=== PATIENT | male | born 1995 | race Caucasian/White ===

== ENCOUNTER 2016-09-26 11:24 | Day surgery (SDC) | payer OTHER ==
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
[~2016-09-26] VITALS: Ht 182.9 cm; Wt 90.0 kg
[~2016-09-26 11:24] MED LIST: CEFAZOLIN 2000 MG/60 ML D5W 60 ML IV SCH; LACTATED RINGER'S 1000ML 1,000 ML IV SCH; LACTATED RINGER'S 1000ML IV SCH
[2016-09-26 11:44] VITALS: BP 106/71; PULSE 54; TEMP 36.8; O2SAT 100; Ht 182.9 cm; Wt 90.0 kg
[2016-09-26] MEDS ORDERED: OXYC-57 PO ×2 (12:00→16:02)
--- NOTE | 2016-09-26 12:03 | History & Physical Bridge Note ---
H&P Re-Evaluation Bridge Note: I have examined the patient, reviewed the History & Physical and in the interval since the performance of the History & Physical I have noted the following changes of clinical significance: No changes noted
[2016-09-26 12:09] LABS: HEMATOCRIT 44.1 % (42-52); MEAN CELL VOLUME 88.7 fL (80-100); MEAN CORPUSCULAR HEMOGLOBIN 31.4 pg (25-34); MEAN PLATELET VOLUME 9.8 fL (7.4-10.4); PLATELET COUNT 216 K/uL (130-400); RED BLOOD COUNT 4.97 M/uL (4.7-6.1); WHITE BLOOD COUNT 4.74 K/uL (4.8-10.8)
[2016-09-26 12:12] LABS: MEAN CORPUSCULAR HGB CONC 35.4 g/dl (32-36)
[2016-09-26] MEDS ORDERED: BUPIVACAINE/EPINEPHRINE 0.5% MPF 1:200,000 30 ML VIAL ONE (12:52)
[2016-09-26] MEDS ORDERED: LIDOCAINE HCL 2% 2 ML VIAL (20MG/ML) ONE (12:53)
[2016-09-26] MEDS ORDERED: ONDANSETRON INJ 2 MG/ML 2 ML VIAL ONE (12:53)
[2016-09-26] MEDS ORDERED: DEXAMETHASONE SOD INJ 4 MG/ML VIAL ONE (12:53)
[2016-09-26] MEDS ORDERED: PROPOFOL IV EMULSION 10 MG/ML 20 ML VIAL IV ONE (12:53)
[2016-09-26] MEDS ORDERED: MIDAZOLAM HCL 1 MG/ML 2ML VIAL ONE (12:53)
[2016-09-26] MEDS ORDERED: FENTANYL CITRATE INJ 50 MCG/1 ML 2 ML VIAL ONE ×2 (12:53)
[2016-09-26] MEDS ORDERED: NEOSTIGMINE METHYLSULFATE 5 MG/5 ML SYR ONE (15:14)
[2016-09-26] MEDS ORDERED: GLYCOPYRROLATE INJ 0.2 MG/ML VIAL ONE (15:14)
--- NOTE | 2016-09-26 15:30 | DIAGNOSTIC IMAGING REPORT ---
INTRAOPERATIVE RIGHT CLAVICLE SINGLE VIEW CLINICAL HISTORY: Right clavicular fracture status post internal fixation COMPARISON: None. DISCUSSION: 14 seconds of fluoroscopic time was utilized. A single fluoroscopic spot images provided for interpretation. This demonstrates an internally fixated right clavicular fracture. There is a superior metallic plate with multiple screws. The medial aspect of the clavicle is not included on this single projection. IMPRESSION: Internally fixated right clavicular fracture. Electronically signed by: Toño Marcano M.D. 09/26/2016 3:28 PM Dictated Date/Time: 09/26/2016 3:28 PM
[2016-09-26] MEDS ORDERED: SODIUM CHLORIDE 0.9% 1000ML 1,000 ML IV SCH (16:05)
--- NOTE | 2016-09-26 16:05 | Discharge Instructions ---
Discharge Instructions Date of Service Sep 26, 2016. Admission Reason for Admission: Closed Fracture Of Clavicle Shaft Discharge Discharge Diagnosis / Problem: SAME ABOVE Discharge Goals Goal(s): Decrease discomfort, Improve function Activity Recommendations Activity Limitations: as noted below Lifting Limitations: until after follow-up appointment Exercise/Sports Limitations: until after follow-up appointment Driving or Machine Use: UNTIL AFTER FOLLOW-UP . Instructions / Follow-Up Instructions / Follow-Up MEDICATIONS: * Resume previous medications unless instructed otherwise by your surgeon. * Always take pain medication on a full stomach or with food to avoid upset stomach. * Do not drink alcohol or drive while taking narcotics. * Ibuprofen or Tylenol may be taken if narcotic not needed. SPECIAL CARE INSTRUCTIONS: __ None _X_ Keep extremity elevated and iced x 48 hours; apply ice 20-30 minutes 8-10 times/day. May remove at night. _X_ Sling (MAY REMOVE ONLY TO SHOWER) _X_24 hrs/day __ Remove at night __ Shoulder Immobilizer __ 24 hrs/day __ Remove at night _X_ Dressing __ Maintain until seen in office, may shower with plastic over site _X_ Remove dressings in 24-48 hours and then may shower _X_ Cover incisions with band-aids after showering __ Do not remove steri-strips ONLY REMOVE THE CLEAR DRESSING AND THE WHITE DRESSING UNDER. DO NOT REMOVE THE MESH THAT IS DIRECTLY ON THE SKIN. Call physician if chills or temperature rises above 102 degrees or pain unrelieved by prescribed pain medications at . . Current Hospital Diet Patient's current hospital diet: Discharge Diet Recommended Diet: Regular Diet Fluid Restriction: None Procedures Procedures Performed: Right Clavicle Open Reduction Internal Fixation Pending Studies Studies pending at discharge: no Work Instructions Return To Work: after follow-up Lifting Limitations: NO LIFTING WITH RIGHT ARM Medical Emergencies . Who to Call and When: Medical Emergencies: If at any time you feel your situation is an emergency, please call 911 immediately. . Non-Emergent Contact Non-Emergency issues call your: Primary Care Provider Call Non-Emergent contact if: you have a fever, temperature is above 101.5 . "Provider Documentation" section prepared by Meliton Hatfield. . VTE Core Measure Inpt VTE Proph given/why not?: Treatment not indicated
[2016-09-26] MEDS ORDERED: HYDROmorphone INJ 1 MG/ML SYR IV PRN (16:15)
[2016-09-26] MEDS ORDERED: EpHEDrine SULFATE INJ 50 MG/ML AMP IV PRN (16:15)
[2016-09-26] MEDS ORDERED: PROMETHAZINE HCL INJ 12.5 MG in SODIUM CHLORIDE 0.9% 50ML 50 ML IV PRN (16:15)
[2016-09-26] MEDS ORDERED: ATROPINE SULFATE 0.1 MG/ML 5ML SYR IV PRN (16:15)
[2016-09-26] MEDS ORDERED: NALOXONE HCL 0.4 MG/1 ML VIAL/CARP IV PRN (16:15)
[2016-09-26] MEDS ORDERED: ONDANSETRON INJ 2 MG/ML 2 ML VIAL IV PRN ×2 (16:15)
[2016-09-26] MEDS ORDERED: OXYCODONE/ACETAMINOPHEN 5-325 TAB PO PRN ×2 (16:15)
--- NOTE | 2016-09-26 16:40 | Anesthesiology Progress Note ---
Anesthesia Post Op Note Date & Time Sep 26, 2016 at 16:40 Vital Signs Pain Intensity: 0 Vital Signs Past 12 Hours Date Time Temp Pulse Resp B/P Pulse Ox O2 Delivery O2 Flow Rate FiO2 09/26/16 16:28 36.3 47 17 138/76 100 Mask 10 09/26/16 16:23 51 100 09/26/16 16:23 50 09/26/16 16:20 133/75 09/26/16 16:18 48 100 09/26/16 16:18 48 09/26/16 16:15 140/81 09/26/16 16:13 50 17 09/26/16 16:13 50 17 100 09/26/16 16:10 127/74 09/26/16 16:08 46 15 100 09/26/16 16:08 45 15 09/26/16 16:05 133/73 09/26/16 16:03 36.0 63 16 149/74 100 Mask 10 09/26/16 16:03 62 20 09/26/16 16:03 62 20 149/74 100 09/26/16 11:44 36.8 54 16 106/71 100 Room Air Notes Mental Status: alert / awake / arousable, participated in evaluation Pt Amnestic to Procedure: Yes Nausea / Vomiting: adequately controlled Pain: adequately controlled Airway Patency, RR, SpO2: stable & adequate BP & HR: stable & adequate Hydration State: stable & adequate Anesthetic Complications: no major complications apparent
[2016-09-26 16:48] VITALS: BP 151/85; PULSE 61; TEMP 36.4; O2SAT 100
--- NOTE | 2016-09-26 17:07 | [facility] Post Operative Brief Note ---
Immediate Operative Summary Operative Date Sep 26, 2016. Pre-Operative Diagnosis Displaced right clavicle fracture Post-Operative Diagnosis Displaced right clavicle fracture Procedure(s) Performed Right Clavicle Open Reduction Internal Fixation Surgeon Dr. Oneil Andrew Admitting Officer Surgeon(s) Meliton Hatfield PA-C Estimated Blood Loss 50mL Findings as above Specimens None per surgeon Complication(s) None Disposition Recovery Room / PACU
[2016-09-26 17:20] VITALS: BP 143/80; PULSE 52; O2SAT 100
[2016-09-26 17:40] VITALS: BP 146/76; PULSE 50; TEMP 36.3; O2SAT 100
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
== END 2016-09-26 17:40 | disposition home or self-care (01) ==
LOC: C.ACU 11:24
PROVIDERS: ATTEND Orthopaedic Surgery
DX: S42.021A Displaced fracture of shaft of right clavicle, initial encounter for closed fracture (principal); V86.59XA Driver of other special all-terrain or other off-road motor vehicle injured in nontraffic accident, initial encounter